=== PATIENT | female | born 1955 | race Caucasian/White ===

== ENCOUNTER → 2017-05-07 | Day surgery (SDC) | payer OTHER ==
[~2017-05-07] MED LIST: BUPIVACAINE HCL 0.5% 10ML MPF VIAL INJ ONE; CEFAZOLIN SOD 1 GM VIAL ONE; DEXAMETHASONE SOD PHOS INJ 4 MG/ML VIAL ONE; FENTANYL CITRATE/PF 100MCG/2 ML INJ ONE; KETOROLAC TROMETHAMINE 30 MG/ML VIAL ONE; LIDOCAINE HCL 2% LOCAL INJ 5 ML SDV VIAL INJ ONE; MIDAZOLAM HCL 2 MG/2 ML VIAL ONE; MORPHINE SULFATE 2 MG/ML SYR ONE; ONDANSETRON HCL INJ 2 MG/ML VIAL ONE; PROPOFOL IV EMULSION 10 MG/ML 20 ML VIAL ONE; SEVOFLURANE INHAL SOLN 250 ML PEN BTL ONE
--- NOTE | 2017-05-07 14:40 | Operative Report ---
DATE OF PROCEDURE: May 07, 2017 MAJOR ASSEMBLER: Davian Gunn PA-C The patient was brought to the operating room for induction of anesthesia. Throughout this case, my PA's assistance was necessary for retraction of soft tissue and positioning of the extremity. This allows for efficient and technically successful execution of the operation and is considered medically necessary. PREOPERATIVE DIAGNOSIS: Mass, left index finger. POSTOPERATIVE DIAGNOSIS: Mass, left index finger. PROCEDURE: Excisional biopsy, left knee index finger mass. INDICATIONS: The patient is a 62-year-old lady who has a cystic-appearing mass over the dorsal aspect of her left index PIP joint. She states that this has been present for a few months. She states that it bothers her, and she would like to have it excised. The risks and benefits of an excisional biopsy have been explained. She states she understands and wishes to proceed. DESCRIPTION OF PROCEDURE: The patient was brought to the operating room and placed under general anesthetic. Her left upper extremity was prepped and draped in a sterile manner. A preoperative time out was performed. Extremity was exsanguinated, and a proximal tourniquet was inflated to 250 mmHg. A transverse incision was made over the PIP joint. A roughly 4 x 4 mm cystic smooth mass was adherent to the dorsal PIP joint. This was excised en bloc. This wound was irrigated. The specimen was sent to pathology. The skin was closed with interrupted nylon stitches. A sterile bandage and splint were applied after performing a digital block with 0.5% Marcaine without epinephrine. The patient was extubated and transported to the recovery room in stable condition. There was no blood loss, and all needle and sponge counts were correct. Job#: [id number]
== END | disposition home or self-care (01) ==
LOC: OR 09:56
PROVIDERS: ATTEND Specialist
DX: M67.442 Ganglion, left hand (principal); F17.210 Nicotine dependence, cigarettes, uncomplicated; Z01.810 Encounter for preprocedural cardiovascular examination
CPT/HCPCS: 26160; 88304; 93005; J0690; J1100; J1885; J2001; J2250; J2270; J2405; 88305